=== PATIENT | female | born 1995 | race Native Hawaiian/Other Pacific Islander ===

== ENCOUNTER 2017-03-11 08:12 | Day surgery (SDC) | payer OTHER ==
[2017-03-11 09:22] VITALS: BMI 21.0
[2017-03-11] MEDS ORDERED: Midazolam 2 MG/2 ML VIAL ONE (10:14)
[2017-03-11] MEDS ORDERED: Propofol 10 mg/ml Inj (20 ML) ONE (10:14)
[2017-03-11] MEDS ORDERED: Succinylcholine 200 mg/10 ml Inj IV ONE (10:18)
[2017-03-11] MEDS ORDERED: Ropivacaine 0.5% 30ML IV ONE (10:19)
[2017-03-11] MEDS ORDERED: Lidocaine 1% Inj (20ml) ONE (10:20)
[2017-03-11] MEDS ORDERED: Sevoflurane - Inhalation Anesthetic Liq (250 ml) ONE (10:33)
[2017-03-11] MEDS ORDERED: Dexamethasone 4 mg/1 ml ONE (10:49)
[2017-03-11] MEDS ORDERED: Lactated Ringer's 1,000 ML IV ONE (11:41)
--- NOTE | 2017-03-11 12:17 | PCM.ANESB4 ---
Infraclavicular Block - Femoral Nerve Block Date of Procedure: 03/11/17 Anesthesiologist: Chandler Pre-Procedure Diagnosis: Right radial fracture Post-Procedure Diagnosis: Same Procedure Performed: Brachial Plexus at the Infraclavicular area Right - Procedure Infraclavicular Block: The procedure was explained to the patient that it is for the post-operative pain management. Consent was obtained after a thorough discussion with the patient regarding the benefits and possible complications of local anesthetic block of the brachial plexus at the infraclavicular area. The patient was brought to the operating room and standard monitors were applied. Time-out was held with the circulating nurse to confirm the correct surgery and the appropriate block. After completion of surgery, patient's head was gently rotated away from the operative ___right shoulder and the area medial to the coracoid process and inferior to the clavicle was carefully palpated. The ultrasound transducer was then applied to the skin in the transverse plane and the brachial plexus was visualized surrounding the axillary artery and deep to the pectoralis major and minor muscles. After thorough identification, this area was prepped with Betadine solution three times and 1 % Lidocaine was injected subcutaneously for topical anesthesia. At this point, a #21 gauge Stimuplex 4-inch needle was inserted cephalad to the ultrasound transducer and inferior to the clavicle in-plane towards the posterior aspect of the axillary artery. Needle advancement was performed carefully under ultrasound visualization. Nerve stimulator was used and twitch of the affected extremity including fingers, hand, wrist and elbow was obtained at current of __0.4___MA. After repeated negative aspiration, ___20__cc of _.5__ __% ropivacaine was injected. Under ultrasound guidance the local anesthetics were observed surrounding the cords of the brachial plexus. The needle was removed intact and sterile dressing was applied. The patient had stable vital signs, was conscious and in no apparent distress. The patient tolerated the infraclavicular block of the brachial plexus well with stable vital signs and was extubated and transferred to PACU.
--- NOTE | 2017-03-11 12:28 | PCM.SURG1 ---
Surgeon's Initial Post Op Note - Surgeon's Notes Surgeon: Dr. Shoaib MD Family Service Worker: Dr. Juan MD, Dr. Olvera PGY-1 Type of Anesthesia: General Endo Anesthesia Administered By: Dr. Arteaga Pre-Operative Diagnosis: right distal radius fracture Operative Findings: see op report Post-Operative Diagnosis: right distal radius fracture Operation Performed: right distal radius ORIF Specimen/Specimens Removed: none Estimated Blood Loss: EBL {In ML}: 10 Blood Products Given: N/A Drains Used: No Drains Post-Op Condition: Good Date of Surgery/Procedure: 03/11/17 Time of Surgery/Procedure: 10:30
[2017-03-11] MEDS ORDERED: Oxycodone/Acetaminophen 5/325 mg Tab PO PRN (13:24)
[2017-03-11 13:42] VITALS: RESP 18; O2SAT 99
--- NOTE | 2017-03-11 15:07 | RAD ---
PROCEDURE: Right Wrist Radiographs. HISTORY: s/p right wrist surgery COMPARISON: None. FINDINGS: BONES: Cast material obscures fine bony and soft-tissue detail. The patient is status post open reduction internal fixation of distal radial fracture (potentially articular) with a solitary compression plate transfixed by approximately multiple screws. Callus from formation is not clearly identified with the fracture appearing adequately reduced. Visualized carpal bones appear intact. JOINTS: Normal. No dislocation. SOFT TISSUES: Normal. OTHER FINDINGS: None. IMPRESSION: Status post ORIF distal right radial fracture without dislocation.
[2017-03-11 16:13] VITALS: BP 116/57; PULSE 88; TEMP 98.6
--- NOTE | 2017-03-12 01:37 | OP ---
PROCEDURE DATE: 03/11/2017 PREOPERATIVE DIAGNOSIS: Displaced right three-part intraarticular distal radius fracture. POSTOPERATIVE DIAGNOSIS: Displaced right three-part intraarticular distal radius fracture. PROCEDURE: Open reduction and internal fixation of right distal radius fracture using Synthes volar locking plate. SURGEON: Sam Cramer M.D. ASSISTANTS: 1. Justin Martinez M.D. 2. Wade, resident. TYPE OF ANESTHESIA: Regional with supplemental intravenous sedation. OPERATIVE FINDINGS: Displaced distal radius fracture, anatomic reduction with rigid fixation was obtained. ESTIMATED BLOOD LOSS: Minimal. DISPOSITION: Stable to recovery room. COMPLICATIONS: None. DESCRIPTION OF PROCEDURE: The patient was taken to the operating room and placed supine on the operating room table. After adequate regional anesthesia with supplemental intravenous sedation was given, a well-padded nonsteroidal tourniquet was placed on the patient's right upper extremity. The right upper extremity was then prepped and draped in standard surgical fashion. Prophylactic antibiotics were given. The proposed incision was marked out with a sterile marking pen. This was a longitudinal incision along the course of the flexor carpi radialis tendon. The incision angled across the wrist flexion crease, and the arm was elevated and exsanguinated with an Esmarch bandage. The tourniquet was inflated to 250 mmHg, and the Esmarch bandage was removed. An incision was made through the skin only. All superficial veins were cauterized. Dissection was performed down to the superficial layer of the flexor carpi radialis sheath. It was incised along its radial muscle border to prevent injury to the palmar cutaneous nerve. The FCR tendon was retracted ulnarly. The floor of the FCR sheath was incised as well along its radial most border. Dissection was then carried out between the radial artery and flexor pollicis longus. An intervening small branches of the radial artery were cauterized. Pronator quadratus was then visualized, it was incised in an L-shaped fashion of its insertion of the radius. The fracture was then visualized and was displaced using a combination of curette and rongeurs, all the callus was removed. The fracture site was irrigated with copious amounts of normal saline suctioned. Reduction maneuver was then performed. Next, a right Synthes plate was applied to the volar aspect of the distal radius. It was temporarily transfixed with K-wires and its location was assessed under image intensification in multiple planes. Excellent placement of the plate was seen, and the near anatomic reduction was obtained as well. Three 3.5 mm screws were placed in the proximal part of the plate followed by locking pegs in the distal aspect of the plate. Once again, the fracture was assessed under x-rays and an excellent screw placement with anatomic reduction of the fracture was seen. Temporary K-wires were removed. All screws were pegged and once again x-rays revealed excellent placement of the screws with no screws penetrating the radiocarpal joint or DRUJ. All screw lengths were noted to be in excellent length. The wound was irrigated with normal saline. The DRUJ was assessed and it was stable. Full passive range of motion of the wrist and elbow was obtained. The pronator quadratus was then repaired back to its anatomic insertion using 3-0 Vicryl suture. The entire plate was covered with pronator quadratus muscle. The tourniquet was deflated. Hemostasis was obtained with bipolar cautery. The 4-0 Vicryl was used for subcutaneous closure, followed by running Monocryl for skin, and thus a sterile dressing was applied consisting of fluffs, 4x4, and a thumb spica splint. The patient tolerated the procedure well and was brought to recovery room, awake, alert, and in excellent condition. Dr. Justin Martinez is a fellowship-trained orthopedic surgeon,who assisted me throughout the entirety of the case. His help was needed with proper patient positioning neurovascular bundles and proper placement of hardware. His assistance was vital for pre, intra, and postoperative safety of the patient. Sam Cramer MD
== END 2017-03-11 16:31 | disposition home or self-care (01) ==
LOC: H.OPSURG 08:12
PROVIDERS: ATTEND Orthopaedic Surgery
DX: S52.571A Other intraarticular fracture of lower end of right radius, initial encounter for closed fracture (principal); X58.XXXA Exposure to other specified factors, initial encounter